=== PATIENT | male | born 1960 | race Caucasian/White ===

== ENCOUNTER 2025-05-04 17:10 | Emergency (ER) | payer OTHER ==
[~2025-05-04] VITALS: Ht 177.8 cm; Wt 70.3 kg
[2025-05-04 17:36] VITALS: TEMP 98.2
[2025-05-04 18:49] LABS: PLATELET COUNT (AUTO) 270 K/uL (150-450); RED BLOOD CELL COUNT(AUTO) 5.08 MIL/uL (4.5-6.0); RED CELL DISTRIBUTION WIDTH 14.3 % (11.5-15.0); WHITE BLOOD COUNT (AUTO) 9.7 K/uL (4.3-11.0)
[2025-05-04] MEDS: IV NS 0.9% 500 ML BAG IV ONE (18:55)
[2025-05-04 18:56] LABS: CALCIUM, SERUM 9.0 mg/dL (8.5-10.1); CREATININE 1.1 mg/dL (0.6-1.3); SODIUM SERUM 144.0 mmol/L (136-145); UREA NITROGEN, BLOOD 18.0 mg/dL (7-18)
[2025-05-04 19:02] LABS: INR 1.1 (0.91-1.10)
[2025-05-04] MEDS ORDERED: IV NS 0.9% 250 ML IV ONE (19:08)
[2025-05-04] MEDS ORDERED: IOHEXOL-300 100 ML VIAL IV ONE (19:08)
[2025-05-04] MEDS ORDERED: METR500T PO (20:50)
[2025-05-04] MEDS ORDERED: CIPR-262 PO (20:50)
[2025-05-04 21:14] VITALS: BP 120/85; O2SAT 96
== END 2025-05-04 21:05 | disposition home or self-care (01) ==
LOC: ER 17:24
DX: K80.20 Calculus of gallbladder without cholecystitis without obstruction (principal); K62.5 Hemorrhage of anus and rectum; K52.9 Noninfective gastroenteritis and colitis, unspecified; E78.00 Pure hypercholesterolemia, unspecified; N40.0 Benign prostatic hyperplasia without lower urinary tract symptoms
CPT/HCPCS: 99285; 74177; 85025; 80048; 36415; 85730; J7050; Q9967